=== PATIENT | male | born 1965 | race Caucasian/White ===

== ENCOUNTER 2019-06-16 19:12 | Emergency (ER) | payer OTHER ==
[~2019-06-16] VITALS: Ht 180.3 cm; Wt 73.9 kg
[2019-06-16 19:12] VITALS: BP 119/79
--- NOTE | 2019-06-16 19:12 | NUR ---
TO BED # 10 , BROUGHT IN AMBULANCE WITH C/O LOWER ABD PAIN, HES SCHEDULED FOR SURGERY TOMORROW IN [facility] AND CANCELLED DUE TO LOW PLATELETS COUNT.
[2019-06-16] MEDS ORDERED: HYDR-5122 PO (21:19)
[2019-06-16] MEDS ORDERED: ATEN25TA7 PO (21:20)
[2019-06-16] MEDS ORDERED: FURO-570 PO (21:20)
--- NOTE | 2019-06-16 21:53 | NUR ---
PT BIBA FOR RT LOWER GROIN PAIN. PT STATES HE WAS SCHEDULED FOR ABD REPAIR SURGERY FOR TOMORROW BUT IT WAS CANCELLED D/T LOW PLATELET COUNT. PT STATES PAIN HAS BEEN THE SAME TODAY AND HE HAS RX OF NORCO. PT STATES HE HAS HAD HERNIA FOR 4 YEARS. RT TESTICLE IS SWOLLEN AND TENDER. PT IS AWAKE, ALERT, CALM , SITTING IN BED , FATHER AT BEDSIDE.
--- NOTE | 2019-06-16 22:00 | NUR ---
LAB AT BEDSIDE FOR DRAW
[2019-06-16 22:28] LABS: BASOPHILS % (AUTO) 1.9 % (0.0-2.0); EOSINOPHILS % (AUTO) 0.4 % (0.0-4.0); HEMATOCRIT 29.6 % (36-52); HEMOGLOBIN 9.6 g/dL (12.0-18.0); LYMPHOCYTES # (AUTO) 0.6 K/uL (2.0-11.5); LYMPHOCYTES % (AUTO) 30.6 % (20.5-51.1); MEAN CORPUSCULAR HEMOGLOBIN 28 pg (27-31); MEAN CORPUSCULAR HGB CONC 33 g/dL (33-37); MEAN CORPUSCULAR VOLUME 84.5 fL (80-94); MONOCYTES # (AUTO) 0.2 K/uL (0.8-1.0); MONOCYTES % (AUTO) 10.6 % (1.7-9.3); NEUTROPHILS # (AUTO) 1.2 K/uL (1.8-7.7); NEUTROPHILS % (AUTO) 56.5 % (42.2-75.2); RED CELL DISTRIBUTION WIDTH 18.1 % (11.6-13.7)
[2019-06-16 22:32] LABS: ALBUMIN 2.6 g/dL (3.4-5.0); ANION GAP 10.1 (8-16); CARBON DIOXIDE 27.8 mmol/L (21-32); CREATININE 0.7 mg/dL (0.7-1.3); TOTAL BILIRUBIN 1.7 mg/dL (0.0-1.0)
[2019-06-16 22:37] LABS: POTASSIUM 2.9 mmol/L (3.5-5.1)
[2019-06-16 22:38] LABS: WHITE BLOOD COUNT (AUTO) 2.1 K/uL (4.8-10.8)
[2019-06-16 22:39] LABS: PLATELET COUNT (AUTO) 41 K/uL (140-450)
--- NOTE | 2019-06-16 23:05 | NUR ---
RECEIVED REPORT FROM RENAN PALACIOS RN. TRANSFER OF CARE AT THIS TIME.
--- NOTE | 2019-06-16 23:08 | NUR ---
PT AWAKE, ALERT, RESTING COMFORTABLY IN BED. PT STATES THAT HERNIA RETRACTED BACK INTO ABD AND THAT THIS HAPPENS SOMETIMES. DENIES PAIN/DISCOMFORT AT THIS TIME. WILL CONTINUE TO MONITOR.
[2019-06-16 23:10] VITALS: BP 107/64
--- NOTE | 2019-06-17 00:17 | NUR ---
PT STATES HE WANTS TO LEAVE BECAUSE HE CANNOT WAIT ANY LONGER. IV DISCONTINUED. PATIENT ELOPED FROM FACILITY. DISCHARGE INSTRUCTIONS NOT GIVEN TO PATIENT. DR. CHRISTIAN NOTIFIED.
== END 2019-06-17 00:17 | disposition left against medical advice (07) ==
LOC: MED 19:12
DX: R10.30 Lower abdominal pain, unspecified (principal); Z53.21 Procedure and treatment not carried out due to patient leaving prior to being seen by health care provider
CPT/HCPCS: 36415; 80053; 85025; 99281